=== PATIENT | female | born 1955 | race American Indian/Alaskan Native ===

== ENCOUNTER 2016-10-31 09:28 | Outpatient (CLI) | payer MEDICARE ==
[2016-10-31 09:45] LABS: Hemoglobin 13.7 gm/dl (10.1-14.3); Mean Corpuscular HGB Conc 33 % (30-34); Mean Corpuscular Hemoglobin 30 pg (28-32); Mean Corpuscular Volume 90 fl (79-97); Platelet Count 210 K/mm3 (140-440); Red Blood Count 4.64 M/mm3 (3.65-5.03); Red Cell Distribution Width 13.6 % (13.2-15.2); White Blood Count 6.9 K/mm3 (4.5-11.0)
[2016-10-31 11:07] LABS: Alanine Aminotransferase 20 units/L (7-56); Albumin/Globulin Ratio 1.1 %; Alkaline Phosphatase 95 units/L (35-129); Anion Gap 19 mmol/L; Bilirubin,Total 0.2 mg/dL (0.1-1.2); Blood Urea Nitrogen 18 mg/dL (7-17); Carbon Dioxide 26 mmol/L (22-30); Glucose 102 mg/dL (65-100); Potassium 4.3 mmol/L (3.6-5.0); Sodium 145 mmol/L (137-145); Total Protein 7.7 g/dL (6.3-8.2)
== END 2016-10-31 09:29 | disposition home or self-care (01) ==
LOC: LAB 09:28
PROVIDERS: ATTEND Specialist
DX: G40.219 Localization-related (focal) (partial) symptomatic epilepsy and epileptic syndromes with complex partial seizures, intractable, without status epilepticus (principal)
CPT/HCPCS: 36415; 80053; 85027